=== PATIENT | female | born 1985 | race Caucasian/White ===

== ENCOUNTER 2016-12-02 23:21 | Emergency (ER) | payer SELFPAY ==
[~2016-12-02] VITALS: Ht 157.5 cm; Wt 120.4 kg
[2016-12-02 23:29] VITALS: TEMP 36.5; Ht 157.5 cm; Wt 120.4 kg
[2016-12-03] MEDS ORDERED: PROPARACAINE HCL 0.5% OP SOLN 15 ML BTL OP STA (00:05)
--- NOTE | 2016-12-03 00:09 | EMERGENCY ROOM VISIT NOTE ---
History Report prepared by Beth: Sofía Tillman Under the Supervision of: Dr. Duyen Lewis M.D. First contact with patient: 23:44 Chief Complaint: OTHER COMPLAINT Stated Complaint: LEFT EYE SWELLING, HEADACHE History of Present Illness The patient is a 31 year old female who presents to the Emergency Room with complaints of persistent left eye swelling starting 4 days ago. Six days ago, she noticed that she had some swelling around her left ear. Two days later, she woke up with eye swelling. She states there was a bump which was itchy. It then became crusty. She also has bumps around her left forehead and hairline. She is having some shooting pain in her eye intermittently. She has had a headache since her eye started swelling. She denies any fever, vomiting, or cold symptoms. She denies any chance of . She notes she has been under increased stress recently. Source of History: patient Onset: 4 days ago Position: eye (left) Quality: other (swelling) Timing: other (persistent) Associated Symptoms: + headache, No fevers, No vomiting Note: Pt reports eye pain. Review of Systems See HPI for pertinent positives & negatives. A total of 10 systems reviewed and were otherwise negative. Past Medical & Surgical Medical Problems: (1) Family History Heart disease Hypertension Social History Smoking Status: Former Smoker Marital Status: in relationship Housing Status: lives with significant other Occupation Status: employed Current/Historical Medications Scheduled Valacyclovir Hcl (Valtrex), 1 TAB PO TID Allergies Coded Allergies: No Known Allergies (Verified , 12/03/16) Physical Exam Vital Signs Date Time Temp Pulse Resp B/P (MAP) Pulse Ox O2 Delivery O2 Flow Rate FiO2 12/03/16 01:25 82 18 133/89 98 12/02/16 23:29 36.5 92 18 144/92 100 Room Air Physical Exam Vital signs reviewed. General: Well-appearing female, in no significant distress. HEENT: Mild left periorbital swelling. Several dry scabbed lesions to the hairline, left forehead, and pre-auricular area. No significant cellulitic change. No meningeal signs. No conjunctival injection. No scleral icterus, PERRLA, neck supple. Atraumatic. Course in exam deferred to Gold Romero PA-C Cardiovascular: Regular rate and rhythm, no extra sounds. Pulmonary: Clear to auscultation bilaterally, normal work of breathing. Abdomen: Soft, nontender, nondistended, positive bowel sounds. Musculoskeletal: Atraumatic, no peripheral edema. Neurologic: Patient awake alert and oriented x 3, full strength in all 4 extremities. Cranial nerves 2 through 12 grossly intact. Skin: Warm, dry, no rash Medical Decision & Procedures Laboratory Results 12/03/16 00:30 Red Blood Count 4.55, Mean Corpuscular Volume 87.5, Mean Corpuscular Hemoglobin 30.3, Mean Corpuscular Hemoglobin Concent 34.7, Mean Platelet Volume 9.1, Neutrophils (%) (Auto) 53.4, Lymphocytes (%) (Auto) 36.6, Monocytes (%) (Auto) 8.1, Eosinophils (%) (Auto) 1.4, Basophils (%) (Auto) 0.2, Neutrophils # (Auto) 5.18, Lymphocytes # (Auto) 3.55, Monocytes # (Auto) 0.79, Eosinophils # (Auto) 0.14, Basophils # (Auto) 0.02 12/03/16 00:30 Test 12/03/16 00:30 White Blood Count 9.71 K/uL (4.8-10.8) Red Blood Count 4.55 M/uL (4.2-5.4) Hemoglobin 13.8 g/dL (12.0-16.0) Hematocrit 39.8 % (37-47) Mean Corpuscular Volume 87.5 fL (80-100) Mean Corpuscular Hemoglobin 30.3 pg (25-34) Mean Corpuscular Hemoglobin Concent 34.7 g/dl (32-36) Platelet Count 331 K/uL (130-400) Mean Platelet Volume 9.1 fL (7.4-10.4) Neutrophils (%) (Auto) 53.4 % Lymphocytes (%) (Auto) 36.6 % Monocytes (%) (Auto) 8.1 % Eosinophils (%) (Auto) 1.4 % Basophils (%) (Auto) 0.2 % Neutrophils # (Auto) 5.18 K/uL (1.4-6.5) Lymphocytes # (Auto) 3.55 K/uL (1.2-3.4) Monocytes # (Auto) 0.79 K/uL (0.11-0.59) Eosinophils # (Auto) 0.14 K/uL (0-0.5) Basophils # (Auto) 0.02 K/uL (0-0.2) RDW Standard Deviation 41.6 fL (36.4-46.3) RDW Coefficient of Variation 13.0 % (11.5-14.5) Immature Granulocyte % (Auto) 0.3 % Immature Granulocyte # (Auto) 0.03 K/uL (0.00-0.02) Anion Gap 7.0 mmol/L (3-11) Est Creatinine Clear Calc Drug Dose 133.5 ml/min Estimated GFR () 123.4 Estimated GFR (Non- 106.4 BUN/Creatinine Ratio 14.2 (10-20) Calcium Level 9.1 mg/dl (8.5-10.1) Laboratory results per my review. Medications Administered Medications (Trade) Dose Ordered Sig/Ann Route Start Time Stop Time Status Last Admin Dose Admin Proparacaine HCl (Alcaine 0.5% Oph Soln) 2 drops NOW STAT OP 12/03/16 00:05 12/03/16 00:06 DC 12/03/16 00:08 2 DROPS Erythromycin (Erythromycin Oph Oint) 1 appln NOW ONCE OPL 12/03/16 00:30 12/03/16 00:31 DC 12/03/16 00:46 1 APPLN Ketorolac Tromethamine (Toradol Inj) 30 mg NOW STAT IV 12/03/16 00:21 12/03/16 00:26 DC 12/03/16 00:48 30 MG Valacyclovir HCl (Valtrex Tab) 1,000 mg NOW ONCE PO 12/03/16 00:30 12/03/16 00:31 DC 12/03/16 00:45 1,000 MG ED Course 2349: Past medical records reviewed. The patient was evaluated in room A4B. A complete history and physical examination was performed. 0021: Toradol Inj 30 mg IV. 0030: Valtrex Tab 1000 mg PO, Erythromycin 1 appln OPL. 0051: Upon reevaluation, the patient appeared to have improvement of her symptoms. I discussed findings with her. She verbalized agreement of the treatment plan. She was discharged home. Medical Decision Differential diagnosis: Etiologies such as shingles, cellulitis, abscess, MRSA infection, DVT, necrotizing fasciitis, dermatitis, drug eruption, as well as others were entertained.. This pt was evaluated and appeared to be in no distress. IV access was obtained and laboratory work was drawn. Patient was medicated with IV Toradol. A fluorescein exam was performed by Gold Romero PA-C. There is a mild corneal abrasion reported without any evidence of ulcer. Patient was placed on erythromycin ophthalmic ointment. She was given Valtrex 1 g by mouth. I do suspect this is shingles, although most of the lesions are crusted. There is no evidence of cellulitis clinically. Patient's WBC count is normal. She does not have a PCP currently. She does not have health insurance currently. The patient was referred to [facility] to become established. She will follow-up with ophthalmology for reevaluation this week. She will return to the ER for worsening of symptoms or any medical concerns. Medication Reconcilliation Current Medication List: was personally reviewed by me Blood Pressure Screening Patient's blood pressure: Elevated blood pressure Blood pressure disposition: Elevated BP felt to be situational Impression Primary Impression: Shingles Scribe Attestation The scribe's documentation has been prepared under my direction and personally reviewed by me in its entirety. I confirm that the note above accurately reflects all work, treatment, procedures, and medical decision making performed by me. Departure Information Dispostion Home / Self-Care Prescriptions Valacyclovir Hcl (VALTREX) 1 Gm Tab 1 TAB PO TID for 7 Days, #21 TAB Prov: Duyen Lewis M.D. 12/03/16 Referrals [facility] Darrick Ring M.D. Forms HOME CARE DOCUMENTATION FORM, IMPORTANT VISIT INFORMATION, WORK / SCHOOL INSTRUCTIONS Patient Instructions My [facility], Shingles Herpes Zoster Additional Instructions Diagnosis: Shingles Valtrex 1000 mg three times daily for 7 days. Erythromycin 1 application to the left eye three times daily for 7 days. Ibuprofen 600 mg every 6 hours as needed for pain with food. Follow up with ophthalmology in 1-2 days for reevaluation of the left eye. Return to the ED for worsening of symptoms or any medical concerns.
[2016-12-03] MEDS ORDERED: KETOROLAC TROMETHAMINE 30 MG/ML VIAL IV STA (00:21)
--- NOTE | 2016-12-03 00:25 | EMERGENCY ROOM VISIT NOTE ---
ED Visit Note Patient was seen and evaluated at the request of my attending physician, Dr. Lewis, for a left eye slitlamp and fluorescein exam. Please see Dr. Lewis's dictation for full history of present illness emergency room course outside of this exam. EYES: The pupils are equal round and reactive to light and accommodation. EOMs are full and without tenderness. There is discharge of clear tears from the left eye which was not significantly injected. There is no foreign body visible under the eyelid even after lid eversion. Funduscopic exam reveals no hemorrhages, papilledema, or other abnormalities. No foreign body was seen embedded in the cornea under slit lamp exam. The cornea was with very minimal superficial cloudiness over the anterior cornea which is felt to be from patient rubbing of the eye. No hyphema was seen. Fluorescein uptake was not observed with ultraviolet light. No ulcerations or dendritic lesions appreciated. Problem List Medical Problems: (1) Status: Resolved Current/Historical Medications Miscellaneous Medications None (Patient States No Home Meds) Allergies Coded Allergies: No Known Allergies (Verified Allergy, Unknown, 07/16/05) Vital Signs Date Time Temp Pulse Resp B/P (MAP) Pulse Ox O2 Delivery O2 Flow Rate FiO2 12/02/16 23:29 36.5 92 18 144/92 100 Room Air Medications Administered Medications (Trade) Dose Ordered Sig/Ann Route Start Time Stop Time Status Last Admin Dose Admin Proparacaine HCl (Alcaine 0.5% Oph Soln) 2 drops NOW STAT OP 12/03/16 00:05 12/03/16 00:06 DC 12/03/16 00:08 2 DROPS Departure Information Referrals No Doctor, Assigned (PCP) Patient Instructions My [facility]
[2016-12-03] MEDS ORDERED: ERYTHROMYCIN OP OINT 5 MG/GM 3.5 GM TUBE OPL ONE (00:30)
[2016-12-03] MEDS ORDERED: VALA1TAB31 PO (00:45)
[2016-12-03 00:46] LABS: HEMATOCRIT 39.8 % (37-47); MEAN CELL VOLUME 87.5 fL (80-100); MEAN CORPUSCULAR HEMOGLOBIN 30.3 pg (25-34); MEAN CORPUSCULAR HGB CONC 34.7 g/dl (32-36); MEAN PLATELET VOLUME 9.1 fL (7.4-10.4); PLATELET COUNT 331 K/uL (130-400); RED BLOOD COUNT 4.55 M/uL (4.2-5.4); WHITE BLOOD COUNT 9.71 K/uL (4.8-10.8)
[2016-12-03 01:08] LABS: BUN/CREATININE RATIO 14.2 (10-20); CALCIUM 9.1 mg/dl (8.5-10.1); CREATININE 0.74 mg/dl (0.60-1.20); POTASSIUM 3.7 mmol/L (3.5-5.1)
[2016-12-03 01:25] VITALS: BP 133/89; PULSE 82; O2SAT 98
[2016-12-03 01:45] LABS: BASO % 0.2 %; BASO ABS # 0.02 K/uL (0-0.2); COMPLETE YES; EOS % 1.4 %; IG% 0.3 %; LYMPH % 36.6 %; LYMPH ABS # 3.55 K/uL (1.2-3.4); MONO % 8.1 %; NEUT % 53.4 %
== END 2016-12-03 01:25 | disposition home or self-care (01) ==
LOC: C.EDB 23:22 → C.EDA 12-03 01:25
DX: B02.9 Zoster without complications (principal); Z82.49 Family history of ischemic heart disease and other diseases of the circulatory system; Z79.899 Other long term (current) drug therapy; S05.02XA Injury of conjunctiva and corneal abrasion without foreign body, left eye, initial encounter; X58.XXXA Exposure to other specified factors, initial encounter; Z87.891 Personal history of nicotine dependence